=== PATIENT | female | born 1935 | race Caucasian/White ===

== ENCOUNTER → 2018-12-15 | Outpatient (CLI) | payer MEDICARE ==
--- NOTE | 2018-12-15 12:23 | RAD ---
Bilateral knees, 6 views, 12/15/2018: HISTORY: Knee pain Bilateral knee prostheses are in place. There is no radiographic evidence of loosening or infection. No fracture or dislocation is evident. No joint effusion is seen. IMPRESSION: 1. Bilateral knee prostheses are in place. 2. No acute abnormality is detected. Electronically signed by: John Mcqueen MD (12/15/2018 12:20 PM) [facility]
== END | disposition home or self-care (01) ==
LOC: RAD 11:27
PROVIDERS: ATTEND Family Medicine
DX: M25.561 Pain in right knee (principal); M25.562 Pain in left knee; Z96.653 Presence of artificial knee joint, bilateral
CPT/HCPCS: 73562

== ENCOUNTER → 2019-08-02 | Outpatient (CLI) | payer MEDICARE ==
--- NOTE | 2019-08-03 01:52 | RAD ---
Indication: Left knee pain. TECHNIQUE: 3 views of the left knee COMPARISON: 12/15/2018 FINDINGS: Status post total knee arthroplasty. No evidence of hardware loosening. No acute fracture or dislocation. No joint effusion. Soft tissue swelling along the medial aspect of the knee. IMPRESSION: As above. Electronically signed by: Michael Daniel DO (08/03/2019 1:48 AM) [id number]
== END | disposition home or self-care (01) ==
LOC: RAD 17:47
PROVIDERS: ATTEND Family Medicine
DX: M25.562 Pain in left knee (principal); M79.89 Other specified soft tissue disorders; Z96.652 Presence of left artificial knee joint
CPT/HCPCS: 73562

== ENCOUNTER → 2019-08-08 | Outpatient (CLI) | payer MEDICARE ==
--- NOTE | 2019-08-08 10:19 | RAD ---
EXAM: Left lower extremity venous Doppler. HISTORY: Left lower extremity pain/swelling. COMPARISON: None. FINDINGS: Grayscale and Doppler analysis of the left lower extremity deep venous system was performed with graded compression and augmentation. The common femoral, greater saphenous, superficial femoral, popliteal and calf veins were assessed. There is no evidence of deep venous thrombosis. IMPRESSION: 1. No evidence of deep venous thrombosis. Electronically signed by: Andrew Huddleston MD (08/08/2019 10:16 AM) [place] [id number]
== END | disposition home or self-care (01) ==
LOC: US 09:25
PROVIDERS: ATTEND Family Medicine
DX: M25.562 Pain in left knee (principal)
CPT/HCPCS: 93971

== ENCOUNTER 2021-04-29 11:10 | Emergency (ER) | payer MEDICARE ==
[~2021-04-29] VITALS: Ht 167.6 cm; Wt 100.0 kg
[2021-04-29 11:17] VITALS: BP 141/60
--- NOTE | 2021-04-29 12:13 | RAD ---
EXAM: 3 views left wrist DATE: 04/29/2021 11:30 AM INDICATION: Reason: fall / Spl. Instructions: / History: . 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 Within the constraints of osteopenia, no evidence for acute fracture or dislocation. Electronically signed by: Ollie White MD (04/29/2021 12:10 PM) [id number]
--- NOTE | 2021-04-29 12:44 | PHYS DOC ---
Past History Past Surgical History: No Surgical History (DEBBY GROVES APRN) Alcohol Use: None (DEBBY GROVES APRN) General Adult EDM: Chief Complaint: UPPER EXTREMITY PAIN HPI: HPI: Patient is a 85-year-old female who presents with left wrist pain. Patient states that she fell 2 days ago and hurt her wrist. Patient denies any other injuries. Denies hitting her head or loss of consciousness. Patient states that she took 2 ibuprofen this morning with little relief. Patient still has full range of motion and sensation. (DEBBY GROVES APRN) Review of Systems: Review of Systems: Constitutional: Denies fever or chills Eyes: Denies change in visual acuity HENT: Denies nasal congestion or sore throat Respiratory: Denies cough or shortness of breath Cardiovascular: Denies chest pain or edema GI: Denies abdominal pain, nausea, vomiting, bloody stools or diarrhea : Denies dysuria Musculoskeletal: Left wrist pain. No swelling noted. Integument: Denies rash Neurologic: Denies headache, focal weakness or sensory changes Endocrine: Denies polyuria or polydipsia Lymphatic: Denies swollen glands Psychiatric: Denies depression or anxiety (DEBBY GROVES APRN) Allergies: Allergies: Allergies Coded Allergies Type Severity Reaction Last Updated Verified No Known Drug Allergies 04/29/21 No (DEBBY GROVES APRN) Physical Exam: PE: Constitutional: Well developed, well nourished, no acute distress, non-toxic appearance. [] HENT: Normocephalic, atraumatic, bilateral external ears normal, oropharynx moist, no oral exudates, nose normal. [] Eyes: PERRLA, EOMI, conjunctiva normal, no discharge. [] Neck: Normal range of motion, no tenderness, supple, no stridor. [] Cardiovascular:Heart rate regular rhythm, no murmur [] Lungs & Thorax: Bilateral breath sounds clear to auscultation [] Abdomen: Bowel sounds normal, soft, no tenderness, no masses, no pulsatile masses. [] Skin: Warm, dry, no erythema, no rash. [] Back: No tenderness, no CVA tenderness. [] Extremities: Left wrist tenderness, no cyanosis, no clubbing, ROM intact, no edema. [] Neurologic: Alert and oriented X 3, normal motor function, normal sensory function, no focal deficits noted. [] Psychologic: Affect normal, judgement normal, mood normal. [] (DEBBY GROVES APRN) Current Patient Data: Vital Signs: Vital Signs Date Time Temp Pulse Resp B/P (MAP) Pulse Ox O2 Delivery O2 Flow Rate FiO2 04/29/21 11:17 97.8 79 16 141/60 Room Air (DEBBY GROVES APRN) EKG: EKG: [] (DEBBY GROVES APRN) Radiology/Procedures: Radiology/Procedures: []EXAM: 3 views left wrist DATE: 04/29/2021 11:30 AM INDICATION: Reason: fall / Spl. Instructions: / History: . 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 Within the constraints of osteopenia, no evidence for acute fracture or dislocation. Electronically signed by: Ollie White MD (04/29/2021 12:10 PM) [id number] (DEBBY GROVES APRN) Heart Score: C/O Chest Pain: No Risk Factors: Risk Factors: DM, Current or recent (<one month) smoker, HTN, HLP, family hi story of CAD, obesity. Risk Scores: Score 0 - 3: 2.5% MACE over next 6 weeks - Discharge Home Score 4 - 6: 20.3% MACE over next 6 weeks - Admit for Clinical Observation Score 7 - 10: 72.7% MACE over next 6 weeks - Early Invasive Strategies (DEBBY GROVES APRN) Course & Med Decision Making: Course & Med Decision Making Pertinent Labs and Imaging studies reviewed. (See chart for details) [] 85-year-old female presents with left wrist pain after a fall 2 days ago. No swelling noted. No obvious signs of fracture. X-ray of wrist is negative for any acute abnormalities. Patient has full range of motion. Radial pulses intact. Sensation intact. Patient given hydrocodone for pain. Patient does report pain on the radial aspect of wrist. Advised patient to make a follow-up appoint with Ortho for possible repeat imaging. Ibuprofen and Tylenol at home. Ice to the area. Rice instructions given. Thumb spica splint placed due to suspicion for scaphoid fracture. Patient given strict return precautions. Patient is hemodynamically stable upon discharge. (DEBBY GROVES APRN) Course & Med Decision Making I oversaw on the above date of service of this patient. This patient was evaluated, examined, treated, and dispositioned from the emergency department by the mid-level practitioner. Although I was working at the time , no assistance was requested. Electronically signed, Kaleigh Giles DO (KALEIGH GILES DO) Phil Disclaimer: Phil Disclaimer: This electronic medical record was generated, in whole or in part, using a voice recognition dictation system. (DEBBY GROVES APRN) Departure Departure: Impression: Primary Impression: Left wrist sprain Qualified Codes: S63.502A - Unspecified sprain of left wrist, initial encounter Disposition: HOME / SELF CARE / HOMELESS Condition: STABLE Referrals: ANDIE SUTTON MD (PCP) Patient Instructions: RICE - Routine Care for Injuries, Wrist Sprain with [facility] Additional Instructions: The emergency room after a fall. X-rays negative for fracture. Splint placed due to suspicion for scaphoid fracture. I am including orthopedics phone number. Please call them today to make a follow-up appointment for repeat imaging. You can use ice, wrist brace, elevation to help with swelling and pain. Ibuprofen and Tylenol at home for discomfort. Return to the emergency room if you have worsening symptoms or concerns. EMERGENCY DEPARTMENT GENERAL DISCHARGE INSTRUCTIONS Thank you for coming to [facility] (ED) today and trusting us with you care. We trust that you had a positivie experience in our Emergency Department. If you wish to speak to the department management, you may call the director at [phone]. YOUR FOLLOW UP INSTRUCTIONS ARE FOLLOWS: 1. Do you have a private Doctor? If you do not have a private doctor, please ask for a resource list of physicians or clinics that may be able to assist you with follow up care. 2. The Emergency Physician has interpreted your x-rays. The X-Ray specialist will also review them. If there is a change in the findings, you will be notified in 48 hours when at all possible. 3. A lab test or culture has been done, your results will be reviewed and you will be notified if you need a change in treatment. ADDITIONAL INSTRUCTIONS AND INFORMATION: 1. Your care today has been supervised by a physician who is specially trained in emergency care. Many problems require more than one evaluation for a complete diagnosis and treatment. We recommend that you schedule your follow up appointment as recommended to ensure complete treatment of you illness or injury. If you are unable to obtain follow up care and continue to have a problem, or if your condition worsens, we recommend that you return to the ED. 2. We are not able to safely determine your condition over the phone nor are we able to give sound medical advice over the phone. For these safety reasons, if you call for medical advice we will ask you to come to the ED for further evaluation. 3. If you have any questions regarding these discharge instructions please call the ED at [phone]. SAFETY INFORMATION: In the interest of safety, wellness, and injury prevention; we encourage you to wear your sealbelt, if you smoke; quite smoking, and we encourage family to use a protective helmet for bicycling and other sporting events that present an increased risk for head injury. IF YOUR SYMPTOMS WORSEN OR NEW SYMPTOMS DEVELOP, OR YOU HAVE CONCERNS ABOUT YOUR CONDITION; OR IF YOUR CONDITION WORSENS WHILE YOU ARE WAITING FOR YOUR FOLLOW UP APPOINTMENT; EITHER CONTACT YOUR PRIMARY CARE DOCTOR, THE PHYSICIAN WHOSE NAME AND NUMBER YOU WERE GIVEN, OR RETURN TO THE ED IMMEDIATELY. DEBBY GROVES APRN Apr 29, 2021 12:44 KALEIGH GILES DO Apr 30, 2021 06:50
[2021-04-29] MEDS ORDERED: HYDROcodone/APAP 5/325MG 1 TAB TABLET PO ONE (13:00)
== END 2021-04-29 13:52 | disposition home or self-care (01) ==
LOC: ER 11:10
DX: S63.502A Unspecified sprain of left wrist, initial encounter (principal); W18.39XA Other fall on same level, initial encounter; Y93.89 Activity, other specified; Y92.89 Other specified places as the place of occurrence of the external cause; Y99.8 Other external cause status
CPT/HCPCS: 29125; 73110; 99283